=== PATIENT | female | born 1975 ===

== ENCOUNTER 2018-12-07 08:23 | Day surgery (SDC) | payer BC ==
[2018-12-02 15:22] VITALS: BMI 32.6
[~2018-12-07 08:23] MED LIST: LACTATED RINGERS 1,000 ML IV SCH; LIDOCAINE 1% 20 ML VIAL (10MG/ML) FOR IV START INTRADERMA PRN
[2018-12-07 09:07] VITALS: TEMP 98.6
[2018-12-07] MEDS ORDERED: PROPOFOL 10 MG/ML 20 ML VIAL IV ONE (09:14)
[2018-12-07 09:44] VITALS: RESP 18
[2018-12-07 10:00] VITALS: BP 123/71; PULSE 78
--- NOTE | 2018-12-07 10:17 | P.PCN ---
Date of Procedure: 12/07/18 Procedure(s) Performed: Procedure: Total colonoscopy. Preoperative diagnosis: Family history of colon cancer. Postoperative diagnosis: Exam within normal limits. Preparation: HalfLytely prep. Sedation: Was provided by anesthesia. Brief clinical history: The patient is a 43-year-old female who is scheduled for this evaluation for screening for neoplasia because of family history of colon cancer in her father. The patient has no abdominal complaints, bleeding or anemia. This would be her first colonoscopy. Procedure: With the patient on her left lateral decubitus position and after informed consent and adequate sedation, the perianal area was inspected and it did not show any fissures or fistulas. There were no masses felt on digital rectal examination. The Olympus CFH 190L video colonoscope was then inserted in the rectum in the usual fashion and advanced to the cecum. The preparation was less than ideal and I spent some time cleansing the bowel. There was no obvious polyps or tumors or any obvious diverticular disease. The mucosa appeared healthy. I retroflexed the endoscope in the rectum before the endoscope was withdrawn. The patient tolerated the procedure well. Plan: The patient was reassured. I suggested repeat exam in 3 years, because of her less than ideal preparation today, before we go with a 5-year schedule because of her family history. I will keep you updated on her progress.
== END 2018-12-07 10:20 | disposition home or self-care (01) ==
LOC: EDSEX 08:23 → ORWHC2ENDO 08:23
DX: Z12.11 Encounter for screening for malignant neoplasm of colon (principal); Z80.0 Family history of malignant neoplasm of digestive organs; Z98.84 Bariatric surgery status; Z88.1 Allergy status to other antibiotic agents; Z88.8 Allergy status to other drugs, medicaments and biological substances
CPT/HCPCS: 81025; J2704; G0105; 45378